=== PATIENT | female | born 1955 | race Caucasian/White ===

== ENCOUNTER 2023-02-13 12:25 | Day surgery (SDC) | payer OTHER, MEDICAID ==
[2023-02-10 09:40] LABS: Basophils # (auto) 0 10 ^3/uL (0-0.2); Basophils % (auto) 0.7 % (0.0-2.0); Eosinophils # (auto) 0.4 10 ^3/uL (0-0.8); Eosinophils % (auto) 6.5 % (0.0-7.0); Hematocrit 37.5 % (36.0-46.0); Hemoglobin 12.3 g/dL (12.2-16.2); Lymphocytes # (auto) 1.5 10 ^3/uL (0.4-5.4); Lymphocytes % (auto) 25.1 % (10.0-50.0); Mean Corpuscular Hemoglobin 30.9 pg (28.0-32.0); Mean Corpuscular Hgb Conc. 32.9 g/dL (32.0-36.0); Monocytes % (auto) 16.5 % (0.0-12.0); Neutrophils # (auto) 3.1 10 ^3/uL (1.6-8.6); Neutrophils % (auto) 51.2 % (37.0-80.0); Nucleated Red Blood Cells % 0.1 %; Red Blood Cells 3.99 10^6/uL (4.0-5.20); Red Cell Distribution Width 16.2 % (11.8-14.3)
[2023-02-10 10:01] LABS: INR 1.01 (0.9-1.15); Partial Thromboplastin Time 27.3 SEC (24.5-34.5)
[2023-02-10 10:45] LABS: Albumin 3.3 g/dL (3.4-5.0); BUN/Creatinine Ratio 14.8 (10.0-20.0); Calcium 9.3 mg/dL (8.5-10.1); Potassium 4.4 mmol/L (3.5-5.1)
[2023-02-10 10:47] LABS: Bilirubin, Total 0.6 mg/dL (0.2-1.0); Total Protein 7.2 g/dL (6.4-8.2)
[~2023-02-13] VITALS: Ht 162.6 cm; Wt 72.6 kg
[~2023-02-13 12:25] MED LIST: ALBUAER3 IN; AMIT10TA12 PO; CARV6.2551 PO; CHOL400T21 PO; COEN30CA10 PO; DESI50TA PO; FURO1TAB33 PO; HYDR-4188 OR; LORA-622 PO; PANT40TA2 PO; POTA-220 PO; PREG150C PO; PSYL1.7W2 PO; TERI14TA2 OR
[2023-02-13] MEDS ORDERED: FLUMAZENIL 0.1 MG/ML INJ 10ML MDV IV ONE (12:33)
[2023-02-13] MEDS ORDERED: NALOXONE HCL 0.4 MG/ML VIAL ONE (12:33)
[2023-02-13] MEDS ORDERED: SODIUM CHLORIDE LOCK 10 ML ONE (12:35)
[2023-02-13 13:24] VITALS: RESP 17; O2SAT 99
[2023-02-13] MEDS: MIDAZOLAM HCL 5 MG/ML-1ML VIAL ONE ×3 (13:32→13:42)
[2023-02-13] MEDS: diphenhdrAMINE HCL 50 MG/1 ML VL ONE ×2 (13:32→13:35)
[2023-02-13] MEDS: fentaNYL CITRATE 100 MCG/2 ML VL ONE ×3 (13:32→13:39)
[2023-02-13 13:56] VITALS: TEMP 97.8; O2SAT 96
[2023-02-13 14:26] VITALS: BP 156/75; PULSE 88; RESP 17; O2SAT 95
== END 2023-02-13 14:36 | disposition home or self-care (01) ==
LOC: GI 12:25
PROVIDERS: ATTEND Internal Medicine Gastroenterology
DX: R19.4 Change in bowel habit (principal); K63.5 Polyp of colon; K64.0 First degree hemorrhoids
CPT/HCPCS: 36415; 45380; 45385; 80053; 85025; 85610; 85730; J1200; J2250; J3010; 99152

== ENCOUNTER 2023-06-07 01:46 | Inpatient (IN) | payer OTHER, MEDICAID ==
[~2023-06-07] VITALS: Ht 162.6 cm; Wt 65.5 kg
[2023-06-07 04:02] LABS: Basophils # (auto) 0.1 10 ^3/uL (0-0.2); Basophils % (auto) 0.5 % (0.0-2.0); Eosinophils # (auto) 0.4 10 ^3/uL (0-0.8); Eosinophils % (auto) 2.8 % (0.0-7.0); Lymphocytes # (auto) 1.3 10 ^3/uL (0.4-5.4); Lymphocytes % (auto) 9.4 % (10.0-50.0); Mean Corpuscular Hemoglobin 30.1 pg (28.0-32.0); Mean Corpuscular Hgb Conc. 31.4 g/dL (32.0-36.0); Monocytes # (auto) 1.1 10 ^3/uL (0-1.3); Monocytes % (auto) 7.8 % (0.0-12.0); Neutrophils # (auto) 11.2 10 ^3/uL (1.6-8.6); Neutrophils % (auto) 79.5 % (37.0-80.0); Red Blood Cells 3.64 10^6/uL (4.0-5.20); Red Cell Distribution Width 16.7 % (11.8-14.3); White Blood Cell 14.1 10^3/uL (4.4-10.8)
[2023-06-07 04:17] LABS: Alanine Aminotransferase 11 U/L (7-40); Albumin 4.1 g/dL (3.2-4.8); Alkaline Phosphatase 129 U/L (46-116); Anion Gap 11 (5-15); Aspartate Aminotransferase 25 U/L (13-40); BUN/Creatinine Ratio 11.2 (10.0-20.0); Blood Urea Nitrogen 21 mg/dL (9-23); Calcium 9.7 mg/dL (8.7-10.4); Carbon Dioxide 20 mmol/L (20-30); Chloride 101 mmol/L (98-107); Glucose 69 mg/dL (74-106); Lipase 56 U/L (12-53); Potassium 4.5 mmol/L (3.5-5.1); Sodium 132 mmol/L (136-145)
[2023-06-07 04:18] LABS: Bilirubin, Total 0.3 mg/dL (0.2-1.0); Total Protein 7.1 g/dL (5.7-8.2)
[2023-06-07 04:28] LABS: INR 1.09 (0.9-1.15); Partial Thromboplastin Time 30.1 SEC (24.5-34.5); Prothrombin Time 11.4 sec (9.3-11.8)
[2023-06-07] MEDS ORDERED: KETOROLAC TROMETH 30 MG/ML 1ML VIAL IV ONE (07:45)
[2023-06-07] MEDS ORDERED: SODIUM CHLORIDE 0.9% 1,000 ML IV ONE ×2 (07:45)
[2023-06-07] MEDS ORDERED: DOCUSATE SOD 100 MG CAP PO ONE ×2 (07:45→10:15)
[2023-06-07 09:25] LABS: Urine Bacteria MOD /hpf (None Seen); Urine Blood Negative /uL (Negative); Urine Clarity Clear (Clear); Urine Color Yellow (Yellow); Urine Hyaline Cast FEW /lpf (0 - 2); Urine Protein, UAD 1+ (Negative); Urine Specific Gravity 1.016 (1.001-1.035); Urine Urobilinogen Normal (Negative); Urine WBC 12 /hpf (0 - 5); Urine pH 5.5 (5.0-8.0)
[2023-06-07 10:00] VITALS: RESP 16; O2SAT 94
[2023-06-07] MEDS ORDERED: cefTRIAXone 1GM/50ML D5W 50 ML IV ONE (10:15)
[2023-06-07] MEDS ORDERED: ACETAMINOPHEN 325 MG TAB PO PRN (10:15)
[2023-06-07] MEDS ORDERED: HYDROcodone-ACET 5/325MG TAB PO PRN (10:15)
[2023-06-07] MEDS ORDERED: LACTULOSE 20Gm/30ML SOLN PO ONE (10:15)
[2023-06-07] MEDS ORDERED: TAMSULOSIN HYDROCHLORIDE 0.4 MG CAP PO ONE (10:15)
[2023-06-07] MEDS: SODIUM CHLORIDE 0.9% 1,000 ML IV SCH ×2 (11:22→20:15)
[2023-06-07 17:00] VITALS: BP 117/59; PULSE 80; RESP 14; TEMP 98.4; O2SAT 95
[2023-06-07] MEDS: TAMSULOSIN HYDROCHLORIDE 0.4 MG CAP PO SCH (17:09)
[2023-06-07 17:27] VITALS: RESP 18
[2023-06-07 17:28] VITALS: RESP 17; O2SAT 94
[2023-06-07 22:00] VITALS: BP_SYST 112; BP_SYST 171; BP_DIAS 52; BP_DIAS 76; PULSE 77; PULSE 85; RESP 18; RESP 19; TEMP 97.2; TEMP 97.9; O2SAT 93; O2SAT 97
[2023-06-07] MEDS: LACTULOSE 20Gm/30ML SOLN PO SCH (22:00)
[2023-06-07] MEDS: DOCUSATE SOD 100 MG CAP PO SCH (22:58)
[2023-06-07] MEDS: PREGABALIN CAPSULE 75 MG CAP PO SCH (22:58)
[2023-06-08] MEDS ORDERED: ACETAMINOPHEN 325 MG TAB PO PRN (00:15)
[2023-06-08 05:00] VITALS: BP 144/69; PULSE 87; RESP 17; TEMP 97.8; O2SAT 92
[2023-06-08] MEDS: SODIUM CHLORIDE 0.9% 1,000 ML IV SCH ×2 (06:15→08:47)
[2023-06-08 06:51] LABS: Basophils # (auto) 0 10 ^3/uL (0-0.2); Basophils % (auto) 0.6 % (0.0-2.0); Eosinophils # (auto) 0.4 10 ^3/uL (0-0.8); Eosinophils % (auto) 5.2 % (0.0-7.0); Hematocrit 33.1 % (36.0-46.0); Hemoglobin 10.4 g/dL (12.2-16.2); Lymphocytes # (auto) 1.7 10 ^3/uL (0.4-5.4); Lymphocytes % (auto) 22.2 % (10.0-50.0); Mean Corpuscular Hemoglobin 31.6 pg (28.0-32.0); Mean Corpuscular Hgb Conc. 31.3 g/dL (32.0-36.0); Mean Corpuscular Volume 100.9 fL (80.0-100.0); Monocytes # (auto) 1.1 10 ^3/uL (0-1.3); Monocytes % (auto) 14.5 % (0.0-12.0); Neutrophils # (auto) 4.5 10 ^3/uL (1.6-8.6); Neutrophils % (auto) 57.5 % (37.0-80.0); Nucleated Red Blood Cells % 0.3 %; Red Blood Cells 3.28 10^6/uL (4.0-5.20); White Blood Cell 7.8 10^3/uL (4.4-10.8)
[2023-06-08 07:10] LABS: Albumin 3.7 g/dL (3.2-4.8); Alkaline Phosphatase 115 U/L (46-116); Anion Gap 10 (5-15); Aspartate Aminotransferase 26 U/L (13-40); BUN/Creatinine Ratio 8.2 (10.0-20.0); Blood Urea Nitrogen 12 mg/dL (9-23); Calcium 9.1 mg/dL (8.7-10.4); Carbon Dioxide 18 mmol/L (20-30); Chloride 107 mmol/L (98-107); Glucose 64 mg/dL (74-106); Potassium 4.2 mmol/L (3.5-5.1); Sodium 135 mmol/L (136-145); Total Protein 6.3 g/dL (5.7-8.2)
[2023-06-08 07:14] LABS: Alanine Aminotransferase < 9 U/L (7-40)
[2023-06-08 07:23] LABS: Bilirubin, Total 0.3 mg/dL (0.2-1.0)
[2023-06-08 08:00] VITALS: BP 130/61; PULSE 88; RESP 20; TEMP 97.3; O2SAT 94
[2023-06-08] MEDS: PREGABALIN CAPSULE 75 MG CAP PO SCH (08:46)
[2023-06-08] MEDS: DOCUSATE SOD 100 MG CAP PO SCH (08:47)
[2023-06-08] MEDS: LACTULOSE 20Gm/30ML SOLN PO SCH (08:47)
[2023-06-08] MEDS ORDERED: cefTRIAXone 1GM/50ML D5W 50 ML IV SCH (09:00)
[2023-06-08] MEDS ORDERED: ENOXAPARIN SOD 30 MG/0.3 ML SYRINGE SC SCH (10:00)
[2023-06-08 12:00] VITALS: BP 143/70; PULSE 88; RESP 20; TEMP 97.9; O2SAT 93
[2023-06-08] MEDS ORDERED: NITR-52 PO (14:04)
[2023-06-08 16:00] VITALS: BP 169/79; PULSE 91; RESP 22; TEMP 97.1; O2SAT 93
[2023-06-08] MEDS: TAMSULOSIN HYDROCHLORIDE 0.4 MG CAP PO SCH (17:33)
[2023-06-08 18:20] VITALS: BP 130/61; PULSE 91; RESP 20; TEMP 97.1; O2SAT 94
[2023-06-09] MEDS ORDERED: ENOXAPARIN SOD 40 MG/0.4 ML SYRINGE SC SCH (10:00)
== END 2023-06-08 19:30 | disposition home or self-care (01) | DRG 683 ==
LOC: ER 01:46 → OVERFLOW 10:10 → WEST WING 16:21
PROVIDERS: ADMIT Internal Medicine Pulmonary Disease; ATTEND Student in an Organized Health Care Education/Training Program
DX: N17.0 Acute kidney failure with tubular necrosis (principal); E87.1 Hypo-osmolality and hyponatremia; N13.6 Pyonephrosis; K59.00 Constipation, unspecified; I10 Essential (primary) hypertension; K76.0 Fatty (change of) liver, not elsewhere classified; N26.1 Atrophy of kidney (terminal); N28.1 Cyst of kidney, acquired; N32.89 Other specified disorders of bladder; R32 Unspecified urinary incontinence; N20.0 Calculus of kidney; N99.3 Prolapse of vaginal vault after hysterectomy; Z87.442 Personal history of urinary calculi; Z90.49 Acquired absence of other specified parts of digestive tract; Z90.710 Acquired absence of both cervix and uterus; Z88.6 Allergy status to analgesic agent; Z88.1 Allergy status to other antibiotic agents; Z88.5 Allergy status to narcotic agent; Z88.8 Allergy status to other drugs, medicaments and biological substances; Z79.899 Other long term (current) drug therapy; Z87.891 Personal history of nicotine dependence; Z83.3 Family history of diabetes mellitus
CPT/HCPCS: 36415; 74176; 80053; 81001; 82140; 83690; 83930; 85025; 85610; 85730; 87081; 96361; 96374; G0378; J0696; J1885

== ENCOUNTER 2023-07-02 06:17 | Day surgery (SDC) | payer OTHER, MEDICAID ==
[~2023-07-02] VITALS: Ht 162.6 cm; Wt 63.5 kg
[~2023-07-02 06:17] MED LIST changes: -CARV6.2551 PO; -FURO1TAB33 PO; +NITR-52 PO; -POTA-220 PO
[2023-07-02] MEDS ORDERED: PROPOFOL 10 MG/ML 20 ML IV ONE (06:54)
[2023-07-02] MEDS ORDERED: fentaNYL CITRATE 100 MCG/2 ML VL ONE (06:54)
[2023-07-02] MEDS ORDERED: CIPROFLOXACIN 400MG/200ML 200 ML IV ONE (07:01)
[2023-07-02] MEDS ORDERED: ONDANSETRON HCL 4 MG/2 ML VIAL IV PRN (07:15)
[2023-07-02] MEDS ORDERED: HYDROmorphone HCL 2 MG/ML VL/or syr IV PRN (07:15)
[2023-07-02 08:25] VITALS: TEMP 98.1; O2SAT 100
[2023-07-02 09:20] VITALS: BP 145/64; PULSE 83; RESP 16; O2SAT 95
== END 2023-07-02 09:25 | disposition home or self-care (01) ==
LOC: SUR 06:17
PROVIDERS: ATTEND Urology
DX: N21.0 Calculus in bladder (principal); I12.9 Hypertensive chronic kidney disease with stage 1 through stage 4 chronic kidney disease, or unspecified chronic kidney disease; N18.6 End stage renal disease; I25.10 Atherosclerotic heart disease of native coronary artery without angina pectoris; I25.2 Old myocardial infarction; Z79.899 Other long term (current) drug therapy; Z79.01 Long term (current) use of anticoagulants; Z98.890 Other specified postprocedural states
CPT/HCPCS: 52318; J0744; J2704; J3010